=== PATIENT | male | born 1955 | race Caucasian/White ===

== ENCOUNTER 2019-01-12 19:36 | Observation (INO) ==
[2019-01-12] MEDS ORDERED: FUROSEMIDE 10 MG/ML VIAL IV ONE (20:06)
--- NOTE | 2019-01-12 20:11 | ERNOTE ---
Dyspnea - Date Date of Service: 01/12/19 - General Presenting Symptoms: shortness of breath, difficulty of breathing Time Seen by Provider: 01/12/19 19:53 Source: patient - Immun/Allergies/Home Medications Immunizations: IMMUNIZATION HX History of Influenza Vaccine No Hx Pneumococcal Vaccination No Allergies/Adverse Reactions: Allergies pseudoephedrine HCl [From Sudafed] Allergy (Verified 05/04/15 07:15) Sulfa (Sulfonamide Antibiotics) Allergy (Verified 05/04/15 07:15) Home Medications: HOME MEDICATIONS Carvedilol [Coreg] 25 mg PO BID 05/04/15 [Last Taken Unknown] Cholecalciferol (Vitamin D3) [Vitamin D3] 1,000 unit PO DAILY 05/04/15 [Last Taken Unknown] Doxazosin Mesylate [Cardura] 4 mg PO HS 05/04/15 [Last Taken Unknown] Furosemide [Lasix] 20 mg PO BID 05/04/15 [Last Taken Unknown] Lisinopril [Zestril] 20 mg PO DAILY 05/04/15 [Last Taken Unknown] Warfarin Sodium [Coumadin] 5 mg PO SUTUWETHSA 05/04/15 [Last Taken Unknown] Warfarin Sodium [Coumadin] 7.5 mg PO MOFR 05/04/15 [Last Taken Unknown] amLODIPine BESYLATE [Norvasc] 10 mg PO DAILY 05/04/15 [Last Taken Unknown] Glimepiride [Amaryl] 1 mg PO DAILY 09/08/16 [Last Taken Unknown] - History of Present Illness Narrative: This is a 63-year-old gentleman with a history of atrial fibrillation and congestive heart failure. Patient says that he has not been able to afford his medicines in several months. Says that over the last few hours he has noticed that his legs have been getting swollen. He says that he is also becoming more short of breath. He said walking across the parking lot to get in to the hospital made him short of breath. Laying flat makes him short of breath. He is not on oxygen at home. Says this feels like when he has CHF in the past. No chest pain. Has been noncompliant with all of his medicines as he says "I have no money at all" he says the only food in his house is in his freezer that he is saved from previous months. He will not have any money until the first of next month or 3 weeks from now. No fever chills sore throat runny nose coughing or other complaints Review of Systems - Review of Systems Constitutional: Present: no symptoms reported EYE: Present: no symptoms reported ENT: Present: no symptoms reported Respiratory: Present: shortness of breath, orthopnea Cardiology: Present: no symptoms reported Gastrointestinal/Abdominal: Present: no symptoms reported Genitourinary: Present: no symptoms reported Musculoskeletal: Present: no symptoms reported Skin: Present: no symptoms reported Neurological: Present: no symptoms reported Endocrine: Present: no symptoms reported Hematologic/Lymphatic: Present: no symptoms reported Psych: Present: no symptoms reported All Other Systems: All systems neg except as marked Social History: Preferred Language Kyrgyz Smoking Status Never smoker Have you smoked in the past 12 No months Alcohol Use none Drug Use none No Social History Section defined Physical Exam - Physical Exam General Appearance: Present: wd/wn, alert, no apparent distress Head Exam: Present: normal inspection, no evidence of injury Eye Exam: Normal inspection: bilateral, PERRL: bilateral Ears, Nose, Throat: Present: normal ENT inspection, normal pharynx Neck: Present: normal inspection, nontender Respiratory: Present: other - Crackles at both bases. Clear elsewhere. Mildly tachypneic around 20 Cardiovascular/Chest: Present: other - Tachycardic but sounds regular Gastrointestinal/Abdominal: Present: normal bowel sounds, nontender, nondistended, soft Back Exam: Present: normal inspection, no CVA tenderness Extremity Exam: Present: other Neurological Exam: Present: alert - Patient with 2+ pitting edema to the knees bilaterally, oriented, normal mood/affect, no motor/sensory deficits, other - Seems mildly anxious. Says whenever he comes to the hospital he gets anxious Skin Exam: Present: normal color, warm/dry Lymphatic Exam: Present: no adenopathy Progress - Results and Orders Patient's Lab Results:: I have reviewed the patient's lab results. - Vital Signs Patient's Vital Signs:: I have reviewed the patient's vital signs. Vital Signs: Vital Signs 01/12/19 19:41 01/12/19 20:04 Temperature 36.6 C Pulse Rate 117 H 117 H Respiratory Rate 22 H Blood Pressure 162/107 H O2 Sat by Pulse Oximetry 98 - EKG EKG #1 EKG read: Interp. by me EKG Comments: Sinus tach ventricular rate of 114. Left axis at -40, QRS is borderline prolonged at 115. Q waves present inferiorly. No ST elevation. Nonspecific T wave changes especially laterally. - X-Ray X-Ray #1 X-Ray: chest Interpretation: Interp. by me X-ray Comments: Mild cardiomegaly with vascular congestion consistent with CHF - Progress/Reassessment Chief Complaint: Dyspnea Progress:: Improved Plan - Plan Plan: This is a 63-year-old gentleman noncompliant with medicines has not been on Coumadin for several months who still has an elevated INR and also has AST and ALT elevation. Could this be alcohol abuse? Says he cannot afford any of his medicines. Regardless he does have symptoms and signs of congestive heart failure. He has gotten some Lasix here in the ER. Going to continue to diuresis him. Keep an eye on his heart rate. I spoke with the admitting doctor and she has requested we hold off on giving Coumadin as if he is drinking he should be on Coumadin and we should not started on Lasix can be able to stay on it. I discussed with her getting social work involved in the patient's case while he is here. Departure Clinical Impression: CHF (congestive heart failure) - Departure Disposition: Still a patient Condition: Fair Referrals: Gabi Hernandez MD [Primary Care Provider] -
[2019-01-12 20:19] LABS: Hematocrit 45.9 % (42.0-52.0); Hemoglobin 14.8 gm/dL (13.5-18.0); Mean Cell Volume 89.1 fl (78-100); Mean Corpuscular Hemoglobin 28.7 pg (27-31); Mean Corpuscular Hgb Conc 32.2 g/dl (32-36); Mean Platelet Volume 12.3 fl (8-11.3); Neutrophil # 4.4 K/mm3 (1.3-6.0); Platelet Count 254 K/mm3 (150-450); Red Blood Count 5.15 M/mm3 (4.7-6.0); Red Cell Distribution Width 13.1 % (11.5-14.0); White Blood Count 8.1 K/mm3 (4.0-10.5)
[2019-01-12 20:28] LABS: Prothrombin Time (Patient) 12.5 Seconds (9.1-10.7)
[2019-01-12 20:31] LABS: INR 1.27 INR (0.92-1.08)
[2019-01-12 20:40] LABS: Albumin * 3.3 gm/dl (3.4-5.0); Anion Gap 15.7 mmol/L (6.8-13.8); BUN/Creatinine Ratio 13.3 (9.0-21.6); Ca. Corrected For Albumin 9.3 mg/dL (8.4-10.2); Calcium * 9.1 mg/dL (7.9-10.9); Carbon Dioxide 23.6 mmol/L (24-32.6); Potassium 4.3 mmol/L (3.4-4.6); Total Protein 6.5 gm/dL (6.2-8.2); Troponin I 0.051 ng/mL (0.00-0.10)
[2019-01-12 21:17] LABS: Urine Bilirubin Negative (NEGATIVE); Urine Blood Negative /ul (NEGATIVE); Urine Ketone Negative (NEGATIVE); Urine Nitrite Negative (NEGATIVE); Urine Protein 30 mg/dL (NEGATIVE); Urine Specific Gravity 1.015 SP.GR. (1.005-1.030); Urine Urobilinogen Normal (NORMAL); Urine pH 5.5 pH (5.0-7.0)
[2019-01-12 21:27] LABS: Urine Appearance Clear (CLEAR); Urine Color Yellow
[2019-01-12 21:28] LABS: Urine Bacteria 2+; Urine Hyaline Cast 0-5 /LPF; Urine RBC 0-5 /hpf (0-5); Urine WBC 0-5 /hpf (0-5)
[2019-01-12] MEDS ORDERED: DOXAZOSIN MESYLATE 2 MG TABLET PO SCH (23:30)
[2019-01-12] MEDS: amLODIPine BESYLATE 10 MG TABLET PO SCH (23:33)
[2019-01-12] MEDS: CARVEDILOL 25 MG TABLET PO SCH (23:33)
[2019-01-13] MEDS ORDERED: LISINOPRIL 10 MG TABLET PO SCH (09:15)
[2019-01-13] MEDS: amLODIPine BESYLATE 10 MG TABLET PO SCH (09:26)
[2019-01-13] MEDS: CARVEDILOL 25 MG TABLET PO SCH (09:26)
[2019-01-13] MEDS: FUROSEMIDE 10 MG/ML VIAL IV SCH (09:26)
[2019-01-13] MEDS: LISINOPRIL 20 MG TABLET PO SCH (09:26)
--- NOTE | 2019-01-13 12:18 | DS ---
(1) Acute exacerbation of CHF (congestive heart failure) Problem: Acute (2) HTN (hypertension) Problem: Chronic Qualifiers: Hypertension type: essential hypertension Qualified Code(s): I10 - Essential (primary) hypertension (3) Tachycardia Problem: Resolved Description of Stay: 63-year-old male with a past medical history of atrial fibrillation and congestive heart failure presents from home with complaints of lower extremity edema times 1 day. He states he has not taken his medication for the past 3 months since October 2018 because he has been having financial difficulties. He was admitted for observation with CHF exacerbation and started on IV Lasix. Vitals remained stable he responded well to the IV Lasix adequate urine output. He is stable for discharge home today. The caser shoe parts has arranged for him to be able to obtain his medication from the $4 medication list at the pharmacy. Patient states he will be able to afford his Lasix, amlodipine and Coreg for the next 1 month by using the $4 list. Procedures Performed: none Results and Findings: Lab Pending Results 01/12/19 20:15: Sodium 138, Plasma Sodium 141, Potassium 4.3, Chloride 103, Carbon Dioxide 23.6 L, Anion Gap 15.7 H, BUN 20, Creatinine 1.50 H, Est GFR (Non-Af Amer) 50 L, BUN/Creatinine Ratio 13.3, Random Glucose 266 H, Calcium 9.1, Calcium Adj for Albumin 9.3, Total Bilirubin 1.0, AST 79 H, ALT 188 H, Alkaline Phosphatase 169, Troponin I 0.051, B-Natriuretic Peptide 7229 H, Total Protein 6.5, Albumin 3.3 L 01/12/19 20:15: PT 12.5 H, INR (Anticoag Therapy) 1.27 H 01/12/19 20:19: WBC 8.1, RBC 5.15, Hgb 14.8, Hct 45.9, MCV 89.1, MCH 28.7, MCHC 32.2, RDW 13.1, Plt Count 254, MPV 12.3 H, Immature Gran % (Auto) 0.40, Immature Gran # (Auto) 0.03, Neutrophils % 54.0, Lymphocytes % 37.0, Monocytes % 6.8, Eosinophils % 0.9, Basophils % 0.9, Nucleated RBC % 0.0, Neutrophils # 4.4, Lymphocytes # 3.01, Monocytes # 0.6, Eosinophils # 0.1, Absolute Basophils 0.1 01/12/19 21:06: Urine Color Yellow, Urine Appearance Clear, Urine pH 5.5, Ur Specific [place] 1.015, Urine Protein 30 H, Urine Glucose (UA) 100 H, Urine Ketones Negative, Urine Blood Negative, Urine Nitrate Negative, Urine Bilirubin Negative, Prot Sulfosalicylic Acd 2+ H, Urine Urobilinogen Normal, Ur Leukocyte Esterase Negative, Urine RBC 0-5, Urine WBC 0-5, Ur Epithelial Cells 5-10 H, Urine Bacteria 2+ H, Hyaline Casts 0-5 H, Urine Culture Comments No culture indicated Discharge Location: Home Disposition: Home self-care Condition: Fair Discharge Activity: Activity as tolerated Discharge Diet: Low salt Referrals: Gabi Hernandez MD [Primary Care Provider] - Additional Patient Instructions (free text): [facility] [address] [place], [place] [address] [facility] [address] [place] [address] Complete Home Medications List: Complete Home Medication List: Carvedilol [Coreg] 25 mg PO BID 05/04/15 Cholecalciferol (Vitamin D3) [Vitamin D3] 1,000 unit PO DAILY 05/04/15 Doxazosin Mesylate [Cardura] 4 mg PO HS 05/04/15 Furosemide [Lasix] 20 mg PO BID 05/04/15 Lisinopril [Zestril] 20 mg PO DAILY 05/04/15 Warfarin Sodium [Coumadin] 5 mg PO SUTUWETHSA 05/04/15 Warfarin Sodium [Coumadin] 7.5 mg PO MOFR 05/04/15 amLODIPine BESYLATE [Norvasc] 10 mg PO DAILY 05/04/15 Glimepiride [Amaryl] 1 mg PO DAILY 09/08/16
--- NOTE | 2019-01-13 12:18 | HP ---
Chief Complaint - Chief Complaint Date of Service: 01/13/19 Time of Service: 08:25 Chief Complaint: Lower extremity edema History of Present Illness: 63-year-old male with a past medical history of atrial fibrillation and congestive heart failure presents from home with complaints of lower extremity edema times 1 day. He states he has not taken his medication for the past 3 months since October 2018 because he has been having financial difficulties. He presented to the ER and was found to have exacerbation of his congestive heart failure, chest x-ray showed small bilateral pleural effusions, vascular indistinctiveness suggestive of interstitial and pulmonary edema. Elevated BNP of over 7000. He was admitted for observation with CHF exacerbation and started on IV Lasix. 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 Smoking Status Never smoker Have you smoked in the past 12 No months Do you dip or chew tobacco No Alcohol Use none Drug Use none No Social History Section defined Review Of Systems (GEN) - Review of Systems Generalized/Overall Review: Absent: Fever EENTM: Absent: Eye Pain Respiratory: Present: Shortness of Breath Cardiac: Present: Edema. Absent: Chest Pain Abdominal: Absent: Abdominal Pain Misc: All systems neg except as marked Immunizations: IMMUNIZATION HX History of Influenza Vaccine No Hx Pneumococcal Vaccination No Allergies/Adverse Reactions: Allergies Allergy/AdvReac Type Severity Reaction Status Date / Time pseudoephedrine HCl Allergy Verified 05/04/15 07:15 [From Sudafed] Sulfa (Sulfonamide Allergy Verified 05/04/15 07:15 Antibiotics) Home Medications: HOME MEDICATIONS Carvedilol [Coreg] 25 mg PO BID 05/04/15 [Last Taken 10/03/18 00:00] Cholecalciferol (Vitamin D3) [Vitamin D3] 1,000 unit PO DAILY 05/04/15 [Last Taken 10/03/18 00:00] Doxazosin Mesylate [Cardura] 4 mg PO HS 05/04/15 [Last Taken 10/03/18 00:00] Furosemide [Lasix] 20 mg PO BID 05/04/15 [Last Taken 10/03/18 00:00] Lisinopril [Zestril] 20 mg PO DAILY 05/04/15 [Last Taken 10/03/18 00:00] Warfarin Sodium [Coumadin] 5 mg PO SUTUWETHSA 05/04/15 [Last Taken 10/03/18 00:00] Warfarin Sodium [Coumadin] 7.5 mg PO MOFR 05/04/15 [Last Taken 10/03/18 00:00] amLODIPine BESYLATE [Norvasc] 10 mg PO DAILY 05/04/15 [Last Taken 10/03/18 00:00] Glimepiride [Amaryl] 1 mg PO DAILY 09/08/16 [Last Taken 10/03/18 00:00] Exam - Exam Vital Signs: Vital Signs - Last Taken Temp 36.6 C 01/13/19 11:30 Pulse 85 01/13/19 11:30 Resp 18 01/13/19 11:30 BP 110/78 01/13/19 11:30 Pulse Ox 96 01/13/19 11:30 Constitutional: Present: Alert, Cooperative, Well developed, Well nourished, No distress ENT Exam: Present: normal ENT inspection, hearing grossly normal, moist mucous membranes Eye Exam: bilateral eye: normal inspection Neck: Present: non-tender, supple. Absent: limited range of motion, lymphadenopathy (R) Back Exam: Present: normal inspection, no CVA tenderness Respiratory: Present: no respiratory distress - Mild, bilateral, crackles Cardiovascular/Chest: Present: normal peripheral pulses, regular rate, rhythm, no murmur, edema Peripheral Pulses: dorsalis-pedis (R): 1+, dorsalis-pedis (L): 1+ Abdomen: Present: Normal bowel sounds, soft, nontender Extremity: Present: pedal edema - +1 Bilateral Skin Exam: Present: normal color, warm/dry, no cyanosis Neurologic: Present: alert, normal mood/affect Appearance: Present: appropriate appearance, appropriate insight Eye contact: Present: cooperative, good eye contact Thoughts: Present: normal thought pattern Diagnostic Studies: Abnormal Lab Results 01/12/19 01/12/19 01/12/19 Range/Units 20:15 20:15 20:19 MPV 12.3 H (8-11.3) fl PT 12.5 H (9.1-10.7) Seconds INR (Anticoag Therapy) 1.27 H (0.92-1.08) INR Carbon Dioxide 23.6 L (24-32.6) mmol/L Anion Gap 15.7 H (6.8-13.8) mmol/L Creatinine 1.50 H (0.4-1.4) mg/dL Est GFR (Non-Af Amer) 50 L (60-130) mL/min Random Glucose 266 H (70-110) mg/dL AST 79 H (0-48) U/L ALT 188 H (19-67) U/L B-Natriuretic Peptide 7229 H (5-175) pg/mL Albumin 3.3 L (3.4-5.0) gm/dl Urine Protein (NEGATIVE) mg/dL Urine Glucose (UA) (NEGATIVE) mg/dL Prot Sulfosalicylic Acd (0) mg/dL Ur Epithelial Cells (0-5) /hpf Urine Bacteria (NONE) Hyaline Casts (NONE) /LPF 01/12/19 Range/Units 21:06 MPV (8-11.3) fl PT (9.1-10.7) Seconds INR (Anticoag Therapy) (0.92-1.08) INR Carbon Dioxide (24-32.6) mmol/L Anion Gap (6.8-13.8) mmol/L Creatinine (0.4-1.4) mg/dL Est GFR (Non-Af Amer) (60-130) mL/min Random Glucose (70-110) mg/dL AST (0-48) U/L ALT (19-67) U/L B-Natriuretic Peptide (5-175) pg/mL Albumin (3.4-5.0) gm/dl Urine Protein 30 H (NEGATIVE) mg/dL Urine Glucose (UA) 100 H (NEGATIVE) mg/dL Prot Sulfosalicylic Acd 2+ H (0) mg/dL Ur Epithelial Cells 5-10 H (0-5) /hpf Urine Bacteria 2+ H (NONE) Hyaline Casts 0-5 H (NONE) /LPF Laboratory Results WBC 8.1 K/mm3 (4.0-10.5) 01/12/19 20:19 RBC 5.15 M/mm3 (4.7-6.0) 01/12/19 20:19 Hgb 14.8 gm/dL (13.5-18.0) 01/12/19 20:19 Hct 45.9 % (42.0-52.0) 01/12/19 20:19 MCV 89.1 fl (78-100) 01/12/19 20:19 MCH 28.7 pg (27-31) 01/12/19 20: MCHC 32.2 g/dl (32-36) 01/12/19 20:19 RDW 13.1 % (11.5-14.0) 01/12/19 20:19 Plt Count 254 K/mm3 (150-450) 01/12/19 20:19 MPV 12.3 fl (8-11.3) H 01/12/19 20:19 Immature Gran % (Auto) 0.40 % (0.001-0.429) 01/12/19 20: Immature Gran # (Auto) 0.03 K/mm3 (0.000-0.0310) 01/12/19 20:19 54.0 % (42-75.0) 01/12/19 20:19 37.0 % (20-51) 01/12/19 20:19 6.8 % (0.0-9) 01/12/19 20:19 0.9 % (0.0-3.0) 01/12/19 20:19 0.9 % (0.0-1.0) 01/12/19:19 Nucleated RBC % 0.0 k/mm3 (0-1) 01/12/19 20:19 4.4 K/mm3 (1.3-6.0) 01/12/19 20:19 3.01 k/mm3 (1.5-3.5) 01/12/19 20:19 0.6 k/mm3 (0.0-1.0) 01/12/19 20:19 0.1 k/mm3 (0.0-0.7) 01/12/19 20:19 Absolute Basophils 0.1 k/mm3 (0.0-0.1) 01/12/19 20:19 PT 12.5 Seconds (9.1-10.7) H 01/12/19 20:15 INR (Anticoag Therapy) 1.27 INR (0.92-1.08) H 01/12/19 20:15 Sodium 138 mmol/L (132-142) 01/12/19 20:15 141 mmol/L (130-142) 01/12/19 20:15 Potassium 4.3 mmol/L (3.4-4.6) 01/12/19 20:15 Chloride 103 mmol/L (97-106) 01/12/19 20:15 Carbon Dioxide 23.6 mmol/L (24-32.6) L 01/12/19 20:15 15.7 mmol/L (6.8-13.8) H 01/12/19 20:15 BUN 20 mg/dL (6-23) 01/12/19 20:15 1.50 mg/dL (0.4-1.4) H 01/12/19 20:15 Est GFR (Non-Af Amer) 50 mL/min (60-130) L 01/12/19 20:15 13.3 (9.0-21.6) 01/12/19 20:15 266 mg/dL (70-110) H 01/12/19 20:15 Calcium 9.1 mg/dL (7.9-10.9) 01/12/19 20:15 Calcium Adj for Albumin 9.3 mg/dL (8.4-10.2) 01/12/19 20:15 1.0 mg/dL (0.0-1.1) 01/12/19 20:15 AST 79 U/L (0-48) H 01/12/19 20:15 ALT 188 U/L (19-67) H 01/12/19 20:15 169 U/L (50-170) 01/12/19 20:15 0.051 ng/mL (0.00-0.10) 01/12/19 20:15 B-Natriuretic Peptide 7229 pg/mL (5-175) H 01/12/19 20:15 6.5 gm/dL (6.2-8.2) 01/12/19 20:15 3.3 gm/dl (3.4-5.0) L 01/12/19 20:15 Yellow 01/12/19 21:06 Clear (CLEAR) 01/12/19 21:06 5.5 pH (5.0-7.0) 01/12/19 21:06 Ur Specific [place] 1.015 SP.GR. (1.005-1.030) 01/12/19 21:06 30 mg/dL (NEGATIVE) H 01/12/19 21:06 100 mg/dL (NEGATIVE) H 01/12/19 21:06 Negative mg/dL (NEGATIVE) 01/12/19 21:06 Negative /ul (NEGATIVE) 01/12/19 21:06 Negative (NEGATIVE) 01/12/19 21:06 Negative mg/dl (NEGATIVE) 01/12/19 21:06 Prot Sulfosalicylic Acd 2+ mg/dL (0) H 01/12/19 21:06 Normal EU/dl (NORMAL) 01/12/19 21:06 Ur Leukocyte Esterase Negative /ul (NEGATIVE) 01/12/19 21:06 0-5 /hpf (0-5) 01/12/19 21:06 0-5 /hpf (0-5) 01/12/19 21:06 Ur Epithelial Cells 5-10 /hpf (0-5) H 01/12/19 21:06 2+ (NONE) H 01/12/19 21:06 Hyaline Casts 0-5 /LPF (NONE) H 01/12/19 21:06 No culture indicated 01/12/19 21:06 Assessment/Plan - Narrative Narrative: 63-year-old male with a past medical history of atrial fibrillation and congestive heart failure presents from home with complaints of lower extremity edema times 1 day. He states he has not taken his medication for the past 3 months since October 2018 because he has been having financial difficulties. He presented to the ER and was found to have exacerbation of his congestive heart failure, chest x-ray showed small bilateral pleural effusions, vascular indistinctiveness suggestive of interstitial and pulmonary edema. Elevated BNP of over 7000. He was admitted for observation with CHF exacerbation and started on IV Lasix. He was found to have hypertension and tachycardia as well. Some of his home blood pressure medications were resumed with good resolution of the hypertension and tachycardia. - Assessment/Plan (1) Acute exacerbation of CHF (congestive heart failure) Problem: Acute (2) HTN (hypertension) Assessment: Improved with his home regimen of amlodipine, Coreg and doxazosin. Problem: Acute Qualifiers: Hypertension type: essential hypertension Qualified Code(s): I10 - Essential (primary) hypertension (3) Tachycardia Assessment: Improved by resuming home medications. Problem: Acute
[2019-01-13] MEDS ORDERED: FUROSEMIDE 10 MG/ML VIAL IV ONE (16:00)
--- NOTE | 2019-01-13 16:45 | PN ---
Progess Note - Interim Date: 01/13/19 Time: 16:43 Narrative: 01/13/19 16:43 Patient developed hypotension with systolic blood pressure of 78/40-50. He is asymptomatic. This may be secondary to restarting all his blood pressure medications that he has not been on for the past 3 months. We will hold any further blood pressure medications today and observe him overnight. I will try to avoid giving fluid boluses because he has been admitted with CHF exacerbation.
[2019-01-14 06:47] LABS: Albumin * 3.3 gm/dl (3.4-5.0); Anion Gap 14.4 mmol/L (6.8-13.8); Bilirubin, Total 0.9 mg/dL (0.0-1.1); Calcium * 8.8 mg/dL (7.9-10.9); Carbon Dioxide 25.2 mmol/L (24-32.6); Potassium 4.6 mmol/L (3.4-4.6); Total Protein 6.7 gm/dL (6.2-8.2)
[2019-01-14] MEDS: FUROSEMIDE 10 MG/ML VIAL IV SCH (08:58)
[2019-01-14] MEDS: CARVEDILOL 25 MG TABLET PO SCH (08:58)
[2019-01-14] MEDS: LISINOPRIL 20 MG TABLET PO SCH (08:59)
[2019-01-14] MEDS ORDERED: FUROSEMIDE 20 MG TABLET PO ONE (10:00)
--- NOTE | 2019-01-14 11:10 | DS ---
(1) Acute exacerbation of CHF (congestive heart failure) Problem: Acute (2) HTN (hypertension) Problem: Chronic Qualifiers: Hypertension type: essential hypertension Qualified Code(s): I10 - Essential (primary) hypertension (3) Tachycardia Problem: Resolved Description of Stay: 63-year-old male with a past medical history of atrial fibrillation and congestive heart failure presents from home with complaints of lower extremity edema times 1 day. He states he has not taken his medication for the past 3 months since October 2018 because he has been having financial difficulties. He was admitted for observation with CHF exacerbation and started on IV Lasix. Vitals remained stable he responded well to the IV Lasix adequate urine output. He is stable for discharge home today. The outsole caser has arranged for him to be able to obtain his medication from the $4 medication list at the pharmacy. Patient states he will be able to afford his Lasix, for the next 1 month by using the $4 list. He became hypotensive on January 13, 2019 after restarting his home blood pressure medication regimen that he had not been on for the past 3 months. Systolic blood pressure was in the 70s. We kept him overnight for observation and to let the blood pressure medications clear from his system. No further blood pressure medications were given and the Lasix was held. Today's blood pressure is back to normal. I advised the patient to monitor his blood pressure at home. When he has the funds to obtain his blood pressure medications he should resume only one medication at a time while monitoring the medication. And he is stable for discharge. He does have some shortness of breath with exertion but is oxygenating well and pulse ox is within normal limits on room air. He may benefit from an echocardiogram as an outpatient. Procedures Performed: none Results and Findings: Lab Pending Results 01/12/19 20:15: Sodium 138, Plasma Sodium 141, Potassium 4.3, Chloride 103, Carbon Dioxide 23.6 L, Anion Gap 15.7 H, BUN 20, Creatinine 1.50 H, Est GFR (Non-Af Amer) 50 L, BUN/Creatinine Ratio 13.3, Random Glucose 266 H, Calcium 9.1, Calcium Adj for Albumin 9.3, Total Bilirubin 1.0, AST 79 H, ALT 188 H, Alkaline Phosphatase 169, Troponin I 0.051, B-Natriuretic Peptide 7229 H, Total Protein 6.5, Albumin 3.3 L 01/12/19 20:15: PT 12.5 H, INR (Anticoag Therapy) 1.27 H 01/12/19 20:19: WBC 8.1, RBC 5.15, Hgb 14.8, Hct 45.9, MCV 89.1, MCH 28.7, MCHC 32.2, RDW 13.1, Plt Count 254, MPV 12.3 H, Immature Gran % (Auto) 0.40, Immature Gran # (Auto) 0.03, Neutrophils % 54.0, Lymphocytes % 37.0, Monocytes % 6.8, Eosinophils % 0.9, Basophils % 0.9, Nucleated RBC % 0.0, Neutrophils # 4.4, Lymphocytes # 3.01, Monocytes # 0.6, Eosinophils # 0.1, Absolute Basophils 0.1 01/12/19 21:06: Urine Color Yellow, Urine Appearance Clear, Urine pH 5.5, Ur Specific [place] 1.015, Urine Protein 30 H, Urine Glucose (UA) 100 H, Urine Ketones Negative, Urine Blood Negative, Urine Nitrate Negative, Urine Bilirubin Negative, Prot Sulfosalicylic Acd 2+ H, Urine Urobilinogen Normal, Ur Leukocyte Esterase Negative, Urine RBC 0-5, Urine WBC 0-5, Ur Epithelial Cells 5-10 H, Urine Bacteria 2+ H, Hyaline Casts 0-5 H, Urine Culture Comments No culture indicated 01/14/19 06:25: Sodium 135, Plasma Sodium 137, Potassium 4.6, Chloride 100, Carbon Dioxide 25.2, Anion Gap 14.4 H, BUN 26 H, Creatinine 1.53 H, Est GFR (Non-Af Amer) 49 L, BUN/Creatinine Ratio 17.0, Random Glucose 200 H, Calcium 8.8, Calcium Adj for Albumin 9.0, Total Bilirubin 0.9, AST 54 H, ALT 178 H, Alkaline Phosphatase 164, Total Protein 6.7, Albumin 3.3 L Discharge Location: Home Disposition: Home self-care Condition: Fair Discharge Activity: Activity as tolerated Discharge Diet: Low salt Referrals: Gabi Hernandez MD [Primary Care Provider] - Problem Oriented Discharge Instructions to Patient/Family: Heart Failure, [id number] Additional Patient Instructions (free text): [facility] [place] [address] [place], [place] [address] [facility] [address] [place] [address] - [facility] will call you on Tuesday with Dr. Rebolledo follow up appointment. Complete Home Medications List: Complete Home Medication List: Carvedilol [Coreg] 25 mg PO BID 05/04/15 Cholecalciferol (Vitamin D3) [Vitamin D3] 1,000 unit PO DAILY 05/04/15 Doxazosin Mesylate [Cardura] 4 mg PO HS 05/04/15 Furosemide [Lasix] 20 mg PO BID 05/04/15 Lisinopril [Zestril] 20 mg PO DAILY 05/04/15 Warfarin Sodium [Coumadin] 5 mg PO SUTUWETHSA 05/04/15 Warfarin Sodium [Coumadin] 7.5 mg PO MOFR 05/04/15 amLODIPine BESYLATE [Norvasc] 10 mg PO DAILY 05/04/15 Glimepiride [Amaryl] 1 mg PO DAILY 09/08/16
[2019-01-14 13:29] VITALS: BP 111/77
== END 2019-01-14 13:43 | disposition home or self-care (01) ==
LOC: ER 19:36 → INTOOBSV 21:07 → MS 21:07
PROVIDERS: ADMIT Internal Medicine; ATTEND Internal Medicine
CPT/HCPCS: 36415; 71020; 71046; 80053; 81001; 83519; 83880; 84484; 85025; 85610; 93005; 94762; 96372; 99285; G0378

== ENCOUNTER 2019-06-20 13:53 | Observation (INO) ==
--- NOTE | 2019-06-20 14:30 | ERNOTE ---
Medical Problem HPI - Narrative Date of Service: 06/20/19 - General Chief Complaint: General Assessment Time Seen by Provider: 06/20/19 14:01 Source: patient Exam Limitations: no limitations - Immun/Allergies/Home Medications Immunizations: IMMUNIZATION HX History of Influenza Vaccine No Hx Pneumococcal Vaccination No Allergies/Adverse Reactions: Allergies pseudoephedrine HCl [From Sudafe] Allergy (Severe, Verified 06/20/19 16:36) Anaphylaxis Sulfa (Sulfonamide Antibiotics) Allergy (Unknown, Verified 06/20/19 16:36) Home Medications: HOME MEDICATIONS Cholecalciferol (Vitamin D3) [Vitamin D3] 1,000 unit PO DAILY 05/04/15 [Last Taken 10/03/18 00:00] carvedilol 25 mg tablet 25 mg PO BID #180 tab 01/18/19 [Last Taken Unknown] furosemide 20 mg tablet 20 mg PO BID #60 tab 01/18/19 [Last Taken 06/20/19 07:00] warfarin 5 mg tablet 5 mg PO DAILY #90 tab 01/18/19 [Last Taken 06/20/19 07:00] metformin 1,000 mg tablet 1,000 mg PO BID #60 tab 03/12/19 [Last Taken Unknown] Lisinopril 20 mg PO BID 06/20/19 [Last Taken Unknown] - Pain Score Pain Score #1 Pain Score: 0 - History of Present History Narrative: The patient is a 64 year old male who presents for dyspnea and diaphoresis which has been constantly present for 2 weeks. There are associated symptoms of increased concentration to urine with dark color which he noted yesterday. The patient denies pain. There are no alleviating factors. There are aggravating factors of activity. Previous treatments have included: none. The past medical history includes: AFib and CHF. The social history is negative. The patient has had no ill contacts. Patient states that since the beginning of Jun he has been having constant diaphoresis and dyspnea which is increased during activity. Patient states yesterday he noted urine to be "dark" in color. Review of Systems - Review of Systems Constitutional: Present: fatigue. Absent: recent illness, fever EYE: Present: no symptoms reported ENT: Present: no symptoms reported. Absent: ear pain, nasal drainage, sore throat Respiratory: Present: shortness of breath. Absent: cough Cardiology: Present: no symptoms reported. Absent: chest pain Gastrointestinal/Abdominal: Present: nausea, eating less, drinking less. Absent: vomiting, diarrhea, abdominal pain Genitourinary: Present: decreased urinary output, other - change in color. Absent: dysuria Musculoskeletal: Present: no symptoms reported Skin: Present: no symptoms reported Neurological: Present: dizziness/light-headedness Endocrine: Present: excessive sweating All Other Systems: All systems neg except as marked Medical History (Updated 03/05/19 @ 10:38 by Gabi Hernandez MD) Atrial fibrillation Congestive heart failure (CHF) Surgical History: Surgical History (Updated 01/12/19 @ 21:49 by Tammy Ham RN) S/P tonsillectomy Family History: Family History (Updated 01/12/19 @ 21:50 by Tammy Ham RN) Other CHF (congestive heart failure) Cancer Diabetes Social History: (Last Reviewed 06/20/19 @ 14:27 by WU Moeller) Tobacco: Smoking Status: Never smoker Physical Exam - Physical Exam General Appearance: Present: wd/wn, alert, mild distress Head Exam: Present: normal inspection, no evidence of injury Eye Exam: Normal inspection: bilateral Ears, Nose, Throat: Present: normal ENT inspection, normal pharynx Neck: Present: normal inspection Respiratory: Present: no respiratory distress, normal breath sounds, no accessory muscle use, lungs clear Cardiovascular/Chest: Present: no murmur, tachycardia Gastrointestinal/Abdominal: Present: normal bowel sounds, nontender, nondistended, soft, no organomegaly Back Exam: Present: no CVA tenderness Extremity Exam: Present: extremity edema - trace edema to bilateral lower extremities Neurological Exam: Present: alert, oriented, normal mood/affect, no motor/sensory deficits Skin Exam: Present: diaphoresis, pallor Progress - Date and Time Seen: Date and Time: 06/20/19 15:28 Discussed case with and will admit observation for CHF and acute renal insuff. 06/20/19 15:30 Patient states he has been out of his Lisinopril for the past 2 days and was going to get it today but came to hospital. Patient states he has not had any am dose of Lisinopril today. - Results and Orders Patient's Lab Results:: I have reviewed the patient's lab results. - Vital Signs Patient's Vital Signs:: I have reviewed the patient's vital signs. Vital Signs: Vital Signs 06/20/19 13:53 06/20/19 14:07 Pulse Rate 106 H 107 H Respiratory Rate 15 Blood Pressure 156/115 H O2 Sat by Pulse Oximetry 97 - EKG EKG #1 EKG: NSR - tachycardia, rate 111 EKG read: Reviewed by me - X-Ray X-Ray #1 X-Ray: chest Interpretation: Reviewed by me X-ray Comments: IMPRESSION: 1. Stable large cardiomegaly. 2. Pulmonary vascular congestion/interstitial edema suggested. Trace bilateral pleural fluid. Consider congestive heart failure versus volume overload. Electronically signed by Sneha Ring M.D.. - Progress/Reassessment Chief Complaint: General Assessment Departure Clinical Impression: Acute renal insufficiency CHF (congestive heart failure) Qualifiers: Heart failure type: diastolic Heart failure chronicity: acute on chronic Qualified Code(s): I50.33 - Acute on chronic diastolic (congestive) heart failure - Departure Disposition: Still a patient Condition: Stable
[2019-06-20 14:35] LABS: Prothrombin Time (Patient) 23.7 Seconds (9.1-10.7)
[2019-06-20 14:36] LABS: INR 2.48 INR (0.92-1.08); Partial Thrombolplastin Time 29.4 Seconds (24-32)
[2019-06-20 14:37] LABS: Hematocrit 45.1 % (42.0-52.0); Hemoglobin 14.6 gm/dL (13.5-18.0); Mean Cell Volume 93.8 fl (78-100); Mean Corpuscular Hemoglobin 30.4 pg (27-31); Mean Corpuscular Hgb Conc 32.4 g/dl (32-36); Mean Platelet Volume 12.1 fl (8-11.3); Neutrophil # 6.4 K/mm3 (1.3-6.0); Neutrophil % 63.7 % (42-75.0); Platelet Count 262 K/mm3 (150-450); Red Blood Count 4.81 M/mm3 (4.7-6.0); Red Cell Distribution Width 15.8 % (11.5-14.0)
[2019-06-20 14:44] LABS: Albumin * 3.6 gm/dl (3.4-5.0); Anion Gap 16.9 mmol/L (6.8-13.8); BUN/Creatinine Ratio 12.7 (9.0-21.6); Bilirubin, Total 2.6 mg/dL (0.0-1.1); Ca. Corrected For Albumin 9.2 mg/dL (8.4-10.2); Calcium * 9.2 mg/dL (7.9-10.9); Carbon Dioxide 23.4 mmol/L (24-32.6); Potassium 4.3 mmol/L (3.4-4.6); TSH * 2.539 uIU/mL (0.358-3.74); Total Protein 7.1 gm/dL (6.2-8.2)
[2019-06-20 14:45] LABS: Troponin I 0.028 ng/mL (0.00-0.10)
[2019-06-20] MEDS ORDERED: FUROSEMIDE 10 MG/ML VIAL IV ONE (15:26)
[2019-06-20] MEDS ORDERED: LISINOPRIL 10 MG TABLET PO ONE (15:31)
--- NOTE | 2019-06-20 16:35 | HP ---
Chief Complaint - Chief Complaint Date of Service: 06/20/19 Time of Service: 16:34 Chief Complaint: shortness of breath History of Present Illness: Shahid White is a 64-year-old white male with past medical history of congestive heart failure, atrial fibrillation, diabetes mellitus, who was admitted on 06/20/2019 because of shortness of breath. 2 weeks prior to admission the patient started getting diaphoretic and was sweating a lot and noticed his urine darker than usual. He had 2 episodes of nausea and vomiting whenever he took his medications. One day prior to admission the patient noticed swelling of his lower extremities and today had dyspnea on exertion and noticed a 3 to 4 pound weight gain since yesterday. He then went to our emergency room where chest x- ray showed the patient to be in pulmonary congestion. His EKG showed sinus tachycardia with anterior myocardial infarction probably old. His troponin was 0.028. His BUN/creatinine was elevated at 24 and 1.89 with a GFR of 38, BNP of 11,699. His INR was 2.48 and therapeutic. He was then admitted for IV diuresis. Medical History (Updated 06/20/19 @ 16:37 by Vero Parsons RN) Diabetes Atrial fibrillation Congestive heart failure (CHF) Surgical History: Surgical History (Updated 06/20/19 @ 16:35 by Gabi Hernandez MD) S/P tonsillectomy Family History: Family History (Updated 01/12/19 @ 21:50 by Tammy Ham RN) Other CHF (congestive heart failure) Cancer Diabetes Social History: (Last Updated 06/20/19 @ 16:38 by Vero Parsons RN) Social History: Marital status: Single lives independently: Yes current occupational status: disabled Highest education level completed: some college, no degree Tobacco: Smoking Status: Never smoker Review Of Systems (GEN) - Review of Systems Generalized/Overall Review: Present: Diaphoresis, Weight gain. Absent: Weakness, Chills, Fever EENTM: Absent: Blurred Vision Respiratory: Present: Shortness of Breath, Orthopnea. Absent: Cough, Wheezing Cardiac: Present: Edema. Absent: Chest Pain, Palpitations Abdominal: Present: Nausea, Vomiting. Absent: Abdominal Pain, Constipation, Diarrhea Genitourinary: Absent: Urgency, Frequency Musculoskeletal: Absent: Joint Pain, Back Pain Neurological: Absent: Headache Skin: Absent: Lesions, Rash Endocrine: Absent: Intolerance to Cold Immunizations: IMMUNIZATION HX History of Influenza Vaccine No Hx Pneumococcal Vaccination No Allergies/Adverse Reactions: Allergies Allergy/AdvReac Type Severity Reaction Status Date / Time pseudoephedrine HCl Allergy Severe Anaphylaxis Verified 06/20/19 16:36 [From [facility]] Sulfa (Sulfonamide Allergy Unknown Verified 06/20/19 16:36 Antibiotics) Home Medications: HOME MEDICATIONS Cholecalciferol (Vitamin D3) [Vitamin D3] 1,000 unit PO DAILY 05/04/15 [Last Taken 10/03/18 00:00] carvedilol 25 mg tablet 25 mg PO BID #180 tab 01/18/19 [Last Taken Unknown] furosemide 20 mg tablet 20 mg PO BID #60 tab 01/18/19 [Last Taken Unknown] warfarin 5 mg tablet 5 mg PO DAILY #90 tab 01/18/19 [Last Taken Unknown] metformin 1,000 mg tablet 1,000 mg PO BID #60 tab 03/12/19 [Last Taken Unknown] Lisinopril 20 mg PO BID 06/20/19 [Last Taken Unknown] Exam - Exam Vital Signs: Vital Signs - Last Taken Pulse 102 H 06/20/19 16:03 Resp 22 H 06/20/19 15:04 BP 157/106 H 06/20/19 16:03 Pulse Ox 95 06/20/19 15:04 Constitutional: Present: Alert, Oriented x3, Cooperative ENT Exam: Present: hearing grossly normal Eye Exam: bilateral eye: normal inspection, PERRL, EOMI Neck: Present: supple Respiratory: Present: decreased breath sounds, rales, No wheezing Cardiovascular/Chest: Present: regular rate, rhythm, no murmur, JVD Abdomen: Present: Normal bowel sounds, soft, nontender, nondistended Extremity: Present: no calf tenderness, lower extremity edema Diagnostic Studies: Abnormal Lab Results 06/20/19 06/20/19 06/20/19 Range/Units 14:15 14:15 14:15 RDW 15.8 H (11.5-14.0) % MPV 12.1 H (8-11.3) fl Immature Gran % (Auto) 0.80 H (0.001-0.429) % Immature Gran # (Auto) 0.08 H (0.000-0.0310) K/mm3 Neutrophils # 6.4 H (1.3-6.0) K/mm3 PT 23.7 H (9.1-10.7) Seconds INR (Anticoag Therapy) 2.48 H (0.92-1.08) INR Carbon Dioxide 23.4 L (24-32.6) mmol/L Anion Gap 16.9 H (6.8-13.8) mmol/L BUN 24 H (6-23) mg/dL Creatinine 1.89 H (0.4-1.4) mg/dL Est GFR (Non-Af Amer) 38 L D (60-130) mL/min Random Glucose 171 H (70-110) mg/dL Total Bilirubin 2.6 H (0.0-1.1) mg/dL B-Natriuretic Peptide 28216 H (5-350) pg/mL Laboratory Results WBC 10.0 K/mm3 (4.0-10.5) 06/20/19 14:15 RBC 4.81 M/mm3 (4.7-6.0) 06/20/19 14:15 Hgb 14.6 gm/dL (13.5-18.0) 06/20/19 14:15 Hct 45.1 % (42.0-52.0) 06/20/19 14:15 MCV 93.8 fl (78-100) 06/20/19 14:15 MCH 30.4 pg (27-31) 06/20/19 14:15 MCHC 32.4 g/dl (32-36) 06/20/19 14:15 RDW 15.8 % (11.5-14.0) H 06/20/19 14:15 Plt Count 262 K/mm3 (150-450) 06/20/19 14:15 MPV 12.1 fl (8-11.3) H 06/20/19 14:15 Immature Gran % (Auto) 0.80 % (0.001-0.429) H 06/20/19 14:15 Immature Gran # (Auto) 0.08 K/mm3 (0.000-0.0310) H 06/20/19 14:15 63.7 % (42-75.0) 06/20/19 14:15 27.6 % (20-51) 06/20/19 14:15 6.4 % (0.0-9) 06/20/19 14:15 0.5 % (0.0-3.0) 06/20/19 14:15 1.0 % (0.0-1.0) 06/20/19 14:15 Nucleated RBC % 0.0 k/mm3 (0-1) 06/20/19 14:15 6.4 K/mm3 (1.3-6.0) H 06/20/19 14:15 2.75 k/mm3 (1.5-3.5) 06/20/19 14:15 0.6 k/mm3 (0.0-1.0) 06/20/19 14:15 0.1 k/mm3 (0.0-0.7) 06/20/19 14:15 Absolute Basophils 0.1 k/mm3 (0.0-0.1) 06/20/19 14:15 PT 23.7 Seconds (9.1-10.7) H 06/20/19 14:15 INR (Anticoag Therapy) 2.48 INR (0.92-1.08) H 06/20/19 14:15 PTT (Armando) 29.4 Seconds (24-32) 06/20/19 14:15 0.45 ug/mL (0.19-0.49) 06/20/19 14:15 Sodium 138 mmol/L (132-142) 06/20/19 14:15 139 mmol/L (130-142) 06/20/19 14:15 Potassium 4.3 mmol/L (3.4-4.6) 06/20/19 14:15 Chloride 102 mmol/L (97-106) 06/20/19 14:15 Carbon Dioxide 23.4 mmol/L (24-32.6) L 06/20/19 14:15 16.9 mmol/L (6.8-13.8) H 06/20/19 14:15 BUN 24 mg/dL (6-23) H 06/20/19 14:15 1.89 mg/dL (0.4-1.4) H 06/20/19 14:15 Est GFR (Non-Af Amer) 38 mL/min (60-130) L D 06/20/19 14:15 12.7 (9.0-21.6) 06/20/19 14:15 171 mg/dL (70-110) H 06/20/19 14:15 Calcium 9.2 mg/dL (7.9-10.9) 06/20/19 14:15 Calcium Adj for Albumin 9.2 mg/dL (8.4-10.2) 06/20/19 14:15 2.6 mg/dL (0.0-1.1) H 06/20/19 14:15 AST 28 U/L (0-48) 06/20/19 14:15 ALT 65 U/L (19-67) 06/20/19 14:15 108 U/L (50-170) 06/20/19 14:15 0.028 ng/mL (0.00-0.10) 06/20/19 14:15 B-Natriuretic Peptide 30892 pg/mL (5-350) H 06/20/19 14:15 7.1 gm/dL (6.2-8.2) 06/20/19 14:15 3.6 gm/dl (3.4-5.0) 06/20/19 14:15 TSH 2.539 uIU/mL (0.358-3.74) 06/20/19 14:15 Assessment/Plan - Narrative Narrative: We will continue to diurese patient with IV Lasix. His acute renal failure likely is prerenal and by history likely he was dehydrated and caused some acute renal insufficiency which exacerbated his congestive heart failure. This could also be due to progression of his congestive heart failure and will do a repeat echocardiogram in the morning. He denies missing medications or not following his low-salt diet. He denies any chest pain. We will continue his home medications. - Assessment/Plan (1) Acute exacerbation of CHF (congestive heart failure) Problem: Acute Qualifiers: Heart failure type: unspecified Qualified Code(s): I50.9 - Heart failure, unspecified (2) ARF (acute renal failure) Problem: Acute (3) HTN (hypertension) Problem: Chronic Qualifiers: Hypertension type: essential hypertension Qualified Code(s): I10 - Essential (primary) hypertension (4) Afib Problem: Chronic Qualifiers: Atrial fibrillation type: paroxysmal Qualified Code(s): I48.0 - Paroxysmal atrial fibrillation
[2019-06-20] MEDS ORDERED: LISINOPRIL 20 MG TABLET PO ONE (17:12)
[2019-06-20 17:51] LABS: Urine Bilirubin Negative (NEGATIVE); Urine Ketone Negative (NEGATIVE); Urine Nitrite Negative (NEGATIVE); Urine Protein 30 mg/dL (NEGATIVE); Urine Specific Gravity 1.025 SP.GR. (1.005-1.030); Urine Urobilinogen Normal (NORMAL)
[2019-06-20 18:06] LABS: Urine Appearance Clear (CLEAR); Urine Bacteria None Seen; Urine Blood 5 /ul (NEGATIVE); Urine Color Yellow; Urine RBC 0-5 /hpf (0-5); Urine WBC None Seen /hpf (0-5)
[2019-06-21] MEDS ORDERED: LISINOPRIL 20 MG TABLET PO SCH (09:00)
[2019-06-21] MEDS ORDERED: CARVEDILOL 25 MG TABLET PO SCH (09:00)
[2019-06-21] MEDS ORDERED: FUROSEMIDE 10 MG/ML VIAL IV SCH (09:00)
[2019-06-21] MEDS ORDERED: POTASSIUM CHLORIDE 10 MEQ TABLET.SA PO SCH (09:00)
[2019-06-21] MEDS ORDERED: CHOLECALCIFEROL 1,000 UNIT CAPSULE PO SCH (09:00)
[2019-06-21 12:25] LABS: Prothrombin Time (Patient) 25.4 Seconds (9.1-10.7)
[2019-06-21 12:27] LABS: INR 2.66 INR (0.92-1.08)
[2019-06-21 12:45] LABS: Calcium * 8.8 mg/dL (7.9-10.9); Carbon Dioxide 25.9 mmol/L (24-32.6); Estimated Creat Clear 45.5; Potassium 3.9 mmol/L (3.4-4.6)
--- NOTE | 2019-06-21 14:33 | DS ---
(1) Acute exacerbation of CHF (congestive heart failure) Problem: Resolved Qualifiers: Heart failure type: unspecified Qualified Code(s): I50.9 - Heart failure, unspecified (2) ARF (acute renal failure) Diagnosis(s): improved Problem: Acute (3) HTN (hypertension) Problem: Chronic Qualifiers: Hypertension type: essential hypertension Qualified Code(s): I10 - Essential (primary) hypertension (4) Afib Problem: Chronic Qualifiers: Atrial fibrillation type: paroxysmal Qualified Code(s): I48.0 - Paroxysmal atrial fibrillation Date of Discharge:: 06/21/19 Description of Stay: Shahid White is a 64-year-old white male with past medical history of congestive heart failure, atrial fibrillation, diabetes mellitus, who was admitted on 06/20/2019 because of shortness of breath. 2 weeks prior to admission the patient started getting diaphoretic and was sweating a lot and noticed his urine darker than usual. He had 2 episodes of nausea and vomiting whenever he took h is medications. One day prior to admission the patient noticed swelling of his lower extremities and today had dyspnea on exertion and noticed a 3 to 4 pound weight gain since yesterday. He then went to our emergency room where chest x- ray showed the patient to be in pulmonary congestion. His EKG showed sinus tachycardia with anterior myocardial infarction probably old. His troponin was 0.028. His BUN/creatinine was elevated at 24 and 1.89 with a GFR of 38, BNP of 11,699. His INR was 2.48 and therapeutic. He was then admitted for IV diuresis. He diuresed well and lost 2 pounds. He feels better. His BNP went down to 7199 and his Cr went down to 1.6. His repeat Echo though showed a decreased in his EF to 35 % from 53% in 11/2107. It is sometime after 11/2017 he says that that he went for some time without all of his medications due to cost and he waited for his medicare. Will discharge him on Lasix 40 mg PO BID form 20 mg BID, add KCl 10 meq PO q daily, hold his metformin due to his elevated Cr. He says that his BS has been running in the 90's-110's. We will just continue with diabetic diet for now and will defer form adding another diabetic medication for now. We will recheck his BMP in 1 week. He will need to follow up with is groutman, Dr. Bhatt , in 1-2 weeks. Procedures Performed: none Results and Findings: Lab Pending Results 06/20/19 14:15: WBC 10.0, RBC 4.81, Hgb 14.6, Hct 45.1, MCV 93.8, MCH 30.4, MCHC 32.4, RDW 15.8 H, Plt Count 262, MPV 12.1 H, Immature Gran % (Auto) 0.80 H, Immature Gran # (Auto) 0.08 H, Neutrophils % 63.7, Lymphocytes % 27.6, Monocytes % 6.4, Eosinophils % 0.5, Basophils % 1.0, Nucleated RBC % 0.0, Neutrophils # 6.4 H, Lymphocytes # 2.75, Monocytes # 0.6, Eosinophils # 0.1, Absolute Basophils 0.1 06/20/19 14:15: PT 23.7 H, INR (Anticoag Therapy) 2.48 H, PTT (Armando) 29.4 06/20/19 14:15: Sodium 138, Plasma Sodium 139, Potassium 4.3, Chloride 102, Carbon Dioxide 23.4 L, Anion Gap 16.9 H, BUN 24 H, Creatinine 1.89 H, Est GFR (Non-Af Amer) 38 L D, BUN/Creatinine Ratio 12.7, Random Glucose 171 H, Calcium 9.2, Calcium Adj for Albumin 9.2, Total Bilirubin 2.6 H, AST 28, ALT 65, Alkaline Phosphatase 108, Troponin I 0.028, B-Natriuretic Peptide 06237 H, Total Protein 7.1, Albumin 3.6, TSH 2.539 06/20/19 14:15: D-Dimer 0.45 06/20/19 17:42: Urine Color Yellow, Urine Appearance Clear, Urine pH 5.0, Ur Specific [place] 1.025, Urine Protein 30 H, Urine Glucose (UA) Negative, Urine Ketones Negative, Urine Blood 5 H, Urine Nitrate Negative, Urine Bilirubin Negative, Prot Sulfosalicylic Acd 1+, Urine Urobilinogen Normal, Ur Leukocyte Esterase Negative, Urine RBC 0-5, Urine WBC None seen, Ur Epithelial Cells 0-5, Urine Bacteria None seen, Urine Culture Comments No culture indicated 06/20/19 20:18: Troponin I 0.076 06/21/19 12:10: Sodium 139, Plasma Sodium 140, Potassium 3.9, Chloride 103, Carbon Dioxide 25.9, Anion Gap 14.0 H, BUN 26 H, Creatinine 1.62 H, Est GFR (Non-Af Amer) 46 L D, BUN/Creatinine Ratio 16.0, Random Glucose 171 H, Calcium 8.8, B-Natriuretic Peptide 7191 H 06/21/19 12:10: PT 25.4 H, INR (Anticoag Therapy) 2.66 H Discharge Location: Home Disposition: Home self-care Condition: Stable Discharge Activity: Activity as tolerated Discharge Diet: Low salt, Low fat/chol Referrals: Gabi Hernandez MD [Primary Care Provider] - Additional Patient Instructions (free text): Follow up with Cardiology outpatientin 1-2 weeks. His groutman is Dr. Lyssa Bhatt. -Please make TCM appointment unless halfway discharge, or if following up with outside provider. Thank you! Jennifer @ [phone] or Jackie at [phone]. follow up with me on his regular scheduled appointment date or earlier if with any problems. Prescriptions (Any new or edited meds): Furosemide 40 mg PO BID #60 tab Potassium Chloride [Klor-Con 10] 10 meq PO DAILY #30 tablet. Complete Home Medications List: Complete Home Medication List: Cholecalciferol (Vitamin D3) [Vitamin D3] 1,000 unit PO DAILY 05/04/15 carvedilol 25 mg tablet 25 mg PO BID #180 tab 01/18/19 warfarin 5 mg tablet 5 mg PO DAILY #90 tab 01/18/19 Lisinopril 20 mg PO BID 06/20/19 Furosemide 40 mg PO BID #60 tab 06/21/19 Potassium Chloride [Klor-Con 10] 10 meq PO DAILY #30 tablet.sa 06/21/19 Amb Orders for Discharge: Basic Metabolic Panel Time Frame: 1 Week, Location: Laboratory
[2019-06-21 15:27] VITALS: BP 97/65
[2019-06-21] MEDS ORDERED: WARFARIN SODIUM 5 MG TABLET PO SCH (17:00)
--- NOTE | 2019-06-25 09:23 | ECHO ---
This report is available in the EMR
== END 2019-06-21 16:05 | disposition home or self-care (01) ==
LOC: MS 13:53 → ER 13:53 → MS 16:12
PROVIDERS: ADMIT Internal Medicine; ATTEND Internal Medicine
DX: N17.9 Acute kidney failure, unspecified; I50.9 Heart failure, unspecified; I10 Essential (primary) hypertension; I48.0 Paroxysmal atrial fibrillation
CPT/HCPCS: 36415; 71020; 71046; 80048; 80053; 81001; 83519; 83880; 84443; 84484; 85025; 85379; 85610; 85730; 93005; 93306; 96374; 96375; 99285; G0378